=== PATIENT | female | born 1935 | race African-American/Black ===

== ENCOUNTER → 2017-04-29 | Outpatient (CLI) | payer MEDICARE ==
--- NOTE | 2017-04-29 10:03 | RADRPT ---
PROCEDURE: XR Chest. CLINICAL INDICATION: Cough. TECHNIQUE: Two views. Frontal and lateral. COMPARISON: 09/25/2015. FINDINGS: There is a benign calcified granuloma in the right midlung zone laterally. The lungs are otherwise c lear. The heart size is normal. There is calcification in the aorta consistent with atherosclerosis. There is no pleural effusion. There is no pneumothorax. IMPRESSION: 1. Previous granulomatous disease. 2. Atherosclerosis. 3. Otherwise normal chest x-ray. RPTAT: QQ .Mulugeta Saldana MD, MD Date Time Electronically viewed and signed by .Mulugeta Saldana MD, MD on 04/29/2017 10:03 .R/
== END | disposition home or self-care (01) ==
LOC: RAD 09:17
PROVIDERS: ATTEND Internal Medicine
DX: R05 Cough (principal); L92.9 Granulomatous disorder of the skin and subcutaneous tissue, unspecified
CPT/HCPCS: 71020